=== PATIENT | female | born 1975 | race Caucasian/White ===

== ENCOUNTER 2019-12-22 14:31 | Inpatient (IN) | payer SELFPAY ==
[~2019-12-22] VITALS: Ht 157.5 cm; Wt 69.9 kg
[2019-12-22] MEDS ORDERED: NITROGLYCERIN 0.4MG TABLET SL SL PRN (16:00)
[2019-12-22 16:33] LABS: BASOPHILS % 0.3 % (0.0-2.0); EOSINOPHILS % 1.9 % (0.0-5.0); HEMATOCRIT. 39.6 % (36.0-48.0); HEMOGLOBIN. 13.5 g/dL (12.0-16.0); LYMPHOCYTES % 15.1 % (20.0-50.0); MEAN CORPUSCULAR HEMOGLOBIN 30.2 pg (28.0-32.0); MEAN CORPUSCULAR VOLUME 88.5 fL (81.0-99.0); MEAN PLATELET VOLUME 8.5 fl (7.4-10.4); MONOCYTES % 5.2 % (2.0-8.0); NEUTROPHILS % 77.5 % (40.0-76.0); PLATELET 259 x1000/uL (130-400); RED BLOOD CELL COUNT 4.48 mill/uL (4.2-5.4); RED CELL DISTRIBUTION WIDTH 13.1 % (11.6-14.6)
[2019-12-22 16:37] LABS: CHLORIDE 109 mEq/L (98-107)
[2019-12-22 16:40] LABS: D-DIMER 1.01 mg/L FEU (<0.50); PARTIAL THROMBOPLASTIN TIME 25.3 sec (23.4-31.0); PROTHROMBIN TIME 10.3 sec (9.6-11.0)
[2019-12-22 18:29] LABS: HCG SCREEN NEGATIVE
[2019-12-22] MEDS ORDERED: MAGNESIUM/ALUMINUM HYDROXIDE/SIMETHICONE 30ML UDC PO PRN (21:45)
[2019-12-22] MEDS ORDERED: ONDANSETRON HCL 4MG/2ML INJ IV PRN (21:45)
[2019-12-22] MEDS ORDERED: IBUPROFEN 200MG TABLET PO PRN (21:45)
[2019-12-22] MEDS ORDERED: MORPHINE SULFATE 2 MG/ML CPJ (NOT FOR IM USE) IV PRN (21:45)
[2019-12-22 22:00] VITALS: BP 161/95
[2019-12-22] MEDS ORDERED: IBUPROFEN 400MG TABLET PO PRN (22:32)
[2019-12-22 22:36] VITALS: BP 161/95
[2019-12-22] MEDS ORDERED: ENOXAPARIN 40MG/0.4ML SYR SUBCUT SCH (23:00)
[2019-12-22] MEDS: SODIUM CHLORIDE 0.9% INJ 3ML FLUSH IVF SCH (23:12)
[2019-12-22 23:41] LABS: CREATINE KINASE 117 IU/L (26-192)
[2019-12-22 23:42] LABS: CREATINE KINASE MB FRACTION < 1.0 ng/mL (0.5-3.6)
[2019-12-23 04:00] VITALS: BP 151/97
[2019-12-23 04:32] VITALS: BP 151/97
[2019-12-23] MEDS: SODIUM CHLORIDE 0.9% INJ 3ML FLUSH IVF SCH (05:23)
[2019-12-23 06:18] LABS: BASOPHILS % 0.4 % (0.0-2.0); HEMATOCRIT. 36.5 % (36.0-48.0); HEMOGLOBIN. 12.4 g/dL (12.0-16.0); LYMPHOCYTES % 22.6 % (20.0-50.0); MEAN CORPUSCULAR HEMOGLOBIN 30.1 pg (28.0-32.0); MEAN CORPUSCULAR VOLUME 88.6 fL (81.0-99.0); MEAN PLATELET VOLUME 8.7 fl (7.4-10.4); MONOCYTES % 9.7 % (2.0-8.0); NEUTROPHILS % 64.3 % (40.0-76.0); PLATELET 262 x1000/uL (130-400); RED BLOOD CELL COUNT 4.12 mill/uL (4.2-5.4); RED CELL DISTRIBUTION WIDTH 13.3 % (11.6-14.6)
[2019-12-23 06:28] LABS: CHLORIDE 108 mEq/L (98-107)
[2019-12-23 06:37] LABS: LDL CHOLESTEROL 125 mg/dL (5-100)
[2019-12-23 06:38] LABS: CREATINE KINASE 96 IU/L (26-192); HDL CHOLESTEROL 45 mg/dL (40-59)
[2019-12-23 06:41] LABS: CREATINE KINASE MB FRACTION < 1.0 ng/mL (0.5-3.6)
[2019-12-23] MEDS ORDERED: PNEUMOCOCCAL 23-VAL P-SAC VAC 0.5 ML IM ONE (08:00)
[2019-12-23 08:25] VITALS: BP 147/96
[2019-12-23 11:48] VITALS: BP 162/94
[2019-12-23 16:09] VITALS: BP 169/96
[2019-12-23 16:11] VITALS: BP 169/96
== END 2019-12-23 16:55 | disposition home or self-care (01) | DRG 203 ==
LOC: ER 14:31 → EDBEDREQ 18:57 → EDBEDREQTM 18:57 → ENRESERV 20:26 → 6WST 22:31
PROVIDERS: ADMIT Family Medicine; ATTEND Family Medicine
DX: R07.89 Other chest pain (principal); Z79.899 Other long term (current) drug therapy
CPT/HCPCS: 36415; 71045; 71275; 80053; 80061; 82550; 82553; 83880; 84484; 84703; 85025; 85379; 93005; 96372; 99285; J1650